=== PATIENT | male | born 1930 | race Caucasian/White ===

== ENCOUNTER → 2017-01-18 | Outpatient (CLI) | payer OTHER, MEDICARE ==
--- NOTE | 2017-01-18 08:33 | DIAGNOSTIC IMAGING REPORT ---
GI SERIES W/AIR ROUTINE CLINICAL HISTORY: HIATAL HERNIA COMPARISON STUDY: None FLUOROSCOPY TIME: 1.6 minutes. FINDINGS: Patient initiated swallowing function well. Esophageal motility is diminished. There is a large fixed. Esophageal hiatal hernia. Distal aspect of the stomach is unremarkable. Duodenal bulb fills well. Duodenal sweep is unremarkable. IMPRESSION: Large fixed. Esophageal hiatal hernia. Diminished esophageal motility. Remainder of the study is unremarkable. Electronically signed by: Ross Pizano M.D. 01/18/2017 8:31 AM Dictated Date/Time: 01/18/2017 8:30 AM
== END | disposition home or self-care (01) ==
LOC: C.RAD 07:42
PROVIDERS: ATTEND Surgery
DX: K44.9 Diaphragmatic hernia without obstruction or gangrene (principal); K22.4 Dyskinesia of esophagus

== ENCOUNTER → 2017-11-27 | Outpatient (CLI) | payer OTHER, MEDICARE ==
--- NOTE | 2017-11-27 11:19 | DIAGNOSTIC IMAGING REPORT ---
GI SERIES W/O KUB CLINICAL HISTORY: Abdominal bloating. Dysphagia. COMPARISON STUDY: Upper GI series January 23, 2017. FLUOROSCOPY TIME: 1.9 minutes. 17 fluoroscopic images were obtained. FINDINGS: Moderate esophageal dysmotility is noted. No esophageal mass or stricture was identified. There are findings consistent with interval repair of a hiatal hernia with Frandy fundoplication. There is appropriate smooth narrowing at the level of the wrap. The wrap appears intact. Contrast passed freely into the stomach. Gastric fold pattern was within normal limits. Duodenum was unremarkable. IMPRESSION: 1. Moderate esophageal dysmotility. 2. Findings consistent with interval Frandy fundoplication with appropriate smooth moderate narrowing at the level of the wrap. Wrap appears intact. No evidence for recurrent hernia. Electronically signed by: Breezy Cobos M.D. 11/27/2017 11:18 AM Dictated Date/Time: 11/27/2017 11:16 AM
== END | disposition home or self-care (01) ==
LOC: C.RAD 10:04
PROVIDERS: ATTEND Surgery
DX: R14.0 Abdominal distension (gaseous) (principal)